=== PATIENT | female | born 1990 | race Caucasian/White ===

== ENCOUNTER 2018-01-17 15:23 | Emergency (ER) | END 2018-01-17 17:29 | disposition home or self-care (01) ==

== ENCOUNTER 2018-06-09 10:13 | Emergency (ER) | payer SELFPAY ==
[~2018-06-09] VITALS: Ht 172.7 cm; Wt 79.6 kg
[~2018-06-09 10:13] MED LIST: BEN50 PO; FOLI-49 PO
[2018-06-09 10:15] VITALS: BP 171/98; PULSE 93; RESP 20; Ht 172.7 cm; Wt 79.6 kg
--- NOTE | 2018-06-09 12:15 | ERD ---
ER Documentation Chief Complaint Chief Complaint Complains of fever and hematuria x 1 week HPI 27-year-old female, previously healthy, presents the emergency department, complaining of hematuria and dysuria for 1 week, associated with mild pelvic pain but no fever, no chills, no nausea or vomiting. ROS All systems reviewed and are negative except as per history of present illness. Medications Home Meds Active Scripts Fluconazole* (Diflucan*) 150 Mg Tablet, 150 MG PO ONCE, #1 TAB Prov:MAYTE IRWIN MD 06/09/18 Sulfamethoxazole/Trimethoprim* (Bactrim Ds* Tablet) 1 Each Tablet, 1 TAB PO BID, #10 TAB Prov:MAYTE IRWIN MD 06/09/18 Phenazopyridine Hcl* (Pyridium*) 200 Mg Tab, 200 MG PO TID PRN for URINARY PAIN, #6 TAB Prov:MAYTE IRWIN MD 06/09/18 Diphenhydramine Hcl* (Benadryl*) 50 Mg Cap, 50 MG PO QHS, #30 CAP Prov:LIZ COLEMAN PA-C 01/17/18 Reported Medications Folic Acid* (Folic Acid*) 1 Mg Tablet, 1 MG PO DAILY, TAB 11/07/14 Allergies Allergies: Coded Allergies: No Known Allergy (Unverified , 06/09/18) PMhx/Soc Medical and Surgical Hx: pt denies Medical Hx History of Surgery: Yes () Anesthesia Reaction: No Hx Alcohol Use: No Hx Substance Use: No Hx Tobacco Use: No Smoking Status: Never smoker FmHx Family History: No diabetes, No coronary disease Physical Exam Vitals Vital Signs Date Temp Pulse Resp B/P (MAP) Pulse Ox O2 O2 Flow FiO2 Time Delivery Rate 06/09/18 97.8 93 20 171/98 100 10:15 (122) Physical Exam Const: No acute distress Head: Atraumatic Eyes: Normal Conjunctiva ENT: Normal External Ears, Nose and Mouth. Neck: Full range of motion. No meningismus. Resp: Clear to auscultation bilaterally Cardio: Regular rate and rhythm, no murmurs Abd: Soft, non tender, non distended. Normal bowel sounds Skin: No petechiae or rashes Back: No midline or flank tenderness Ext: No cyanosis, or edema Neur: Awake and alert Psych: Normal Mood and Affect Results 24 hrs Laboratory Tests Test 06/09/18 12:29 06/09/18 12:31 Bedside Urine pH (LAB) 6.0 Bedside Urine Protein (LAB) Negative Bedside Urine Glucose (UA) Negative Bedside Urine Ketones (LAB) Negative Bedside Urine Blood 2+ Bedside Urine Nitrite (LAB) Negative Bedside Urine Leukocyte Esterase (L Trace POC Beta HCG, Qualitative NEGATIVE Current Medications Medications Dose Sig/Pebbles Start Time Status Last (Trade) Ordered Route PRN Stop Time Admin Dose Reason Admin 500 mg ONCE ONCE 06/09/18 DC 06/09/18 Ciprofloxacin PO 13:00 06/09/18 12:50 (Cipro) 13:01 200 mg ONCE ONCE 06/09/18 DC 06/09/18 Phenazopyridi PO 13:00 06/09/18 12:50 ne HCl 13:01 (Pyridium) Procedures/MDM differential diagnosis include but not limited to: UTI, colitis, gastroenteritis, kidney stones, irritable bowel syndrome, inflammatory bowel syndrome, malabsorption syndrome, cholelithiasis, food intolerance, medication side effect, pancreatitis, diverticulitis, bowel obstruction. Low suspicion for acute abdomen Physical examination and clinical presentation consistent most likely with urinary tract infection. During the ED course the patient remained stable, no new complaints. Results and clinical impression discussed with patient who agrees with manag ement. The patient is stable to be treated outpatient and will be discharged home, some side effects of prescribed medications (headache, rash, nausea, vomiting, diarrhea, drowsiness, habituation, bleeding, hypertension, interactions with other medications) were reviewed. The patient was instructed to follow up with the primary care provider in the next 48h. If symptoms persist, worsen or new symptoms develop, then patient should return to the ED immediately. Instructions explained and given directly by me to the patient with acknowledgment and demonstrated understanding. Disclaimer: Inadvertent spelling and grammatical errors are likely due to EHR/dictation software use and do not reflect on the overall quality of patient care. Also, please note that the electronic time recorded on this note does not necessarily reflect the actual time of the patient encounter. Departure Diagnosis: Primary Impression: UTI (urinary tract infection) Condition: Stable Patient Instructions: Understanding Urinary Tract Infections (UTIs) Additional Instructions: Thank you very much for allowing us to participate in your care. Your health and safety is our top priority at [facility]. Call your primary care doctor TOMORROW for an appointment during the next 2-4 days and bring all the information and medications prescribed. Have prescriptions filled and follow precisely the directions on the label. If the symptoms get worse and your provider is unavailable, return to the Emergency Department immediately. MAYTE IRWIN MD Jun 09, 2018 12:15
[2018-06-09] MEDS ORDERED: PHEN-538 PO (12:47)
[2018-06-09] MEDS ORDERED: CIPR-193 PO (12:47)
[2018-06-09] MEDS ORDERED: PHENAZOPYRIDINE 100 MG TAB PO ONE (13:00)
[2018-06-09] MEDS ORDERED: CIPROFLOXACIN 500 MG TAB PO ONE (13:00)
[2018-06-09] MEDS ORDERED: SULF1TAB31 PO (13:28)
[2018-06-09] MEDS ORDERED: FLUC150T PO (13:28)
== END 2018-06-09 13:42 | disposition home or self-care (01) ==
LOC: FTE 10:13
DX: N39.0 Urinary tract infection, site not specified (principal)
CPT/HCPCS: 81003; 81025; 99283